=== PATIENT | female | born 1950 | race Caucasian/White ===

== ENCOUNTER → 2017-11-16 | Outpatient (CLI) | payer OTHER ==
--- NOTE | 2017-11-16 11:35 | RAD ---
EXAM: Right wrist, 3 views. HISTORY: Pain. COMPARISON: None. FINDINGS: 3 views of the right wrist are obtained. There is no acute fracture, dislocation or subluxation. There is first carpometacarpal joint space narrowing with subchondral sclerosis and minimal spurring. There is a prominent scapholunate joint space, not clearly within limits to suggest ligament surgery. IMPRESSION: No acute osseous finding. Minimal first carpometacarpal osteoarthritis. Electronically signed by: Zoraida Engel MD (11/16/2017 11:32 AM) [email or web address]
== END | disposition home or self-care (01) ==
LOC: PMG 10:37
PROVIDERS: ATTEND Physician Assistant Medical
DX: M19.041 Primary osteoarthritis, right hand (principal)
CPT/HCPCS: 73110

== ENCOUNTER → 2018-01-29 | Day surgery (SDC) | payer OTHER ==
[~2018-01-29] MED LIST: ALBU8.5H8 INH; ALBUTEROL SULFATE 2.5 MG/3 ML NEBU. NEB PRN; ATROPINE 0.5 MG/5 ML DISP.SYRIN. IV PRN; FEXO180T81 PO; IV RINGERS SOLUTION,LACTATED 1,000 ML IV SCH; LEVO100T PO; LIDOCAINE 2% PF Vial for OR 5 ML VIAL. ONE; LOSA1TAB22 PO; MONT10TA9 PO; NALOXONE 0.4 MG/ML VIAL. IV PRN; ONDANSETRON PF 4 MG/2 ML VIAL. IV PRN; PROPOFOL 20 ML IV ONE
[2018-01-29 13:42] VITALS: BP 132/76
== END | disposition home or self-care (01) ==
LOC: SURG 11:34
PROVIDERS: ATTEND Internal Medicine Gastroenterology
DX: Z12.11 Encounter for screening for malignant neoplasm of colon (principal); K63.5 Polyp of colon; K57.30 Diverticulosis of large intestine without perforation or abscess without bleeding; I10 Essential (primary) hypertension; J44.9 Chronic obstructive pulmonary disease, unspecified; E03.9 Hypothyroidism, unspecified; M19.90 Unspecified osteoarthritis, unspecified site; Z88.0 Allergy status to penicillin; Z88.1 Allergy status to other antibiotic agents; Z88.5 Allergy status to narcotic agent; Z72.0 Tobacco use; E74.39 Other disorders of intestinal carbohydrate absorption; Z79.899 Other long term (current) drug therapy; Z90.710 Acquired absence of both cervix and uterus; Z98.890 Other specified postprocedural states; Z96.651 Presence of right artificial knee joint
CPT/HCPCS: 45385; J7120; G0105

== ENCOUNTER → 2018-06-04 | Outpatient (CLI) | payer MEDICARE, OTHER ==
[2018-01-29 13:42] VITALS: BP 132/76
[~2018-06-04] MED LIST changes: +ALBU2.5V8 INH; -ALBU8.5H8 INH; -ALBUTEROL SULFATE 2.5 MG/3 ML NEBU. NEB PRN; -ATROPINE 0.5 MG/5 ML DISP.SYRIN. IV PRN; -IV RINGERS SOLUTION,LACTATED 1,000 ML IV SCH; -LIDOCAINE 2% PF Vial for OR 5 ML VIAL. ONE; -NALOXONE 0.4 MG/ML VIAL. IV PRN; -ONDANSETRON PF 4 MG/2 ML VIAL. IV PRN; -PROPOFOL 20 ML IV ONE
--- NOTE | 2018-06-04 10:19 | RAD ---
Indication:CONSTIPATION, diarrhea, ABD DISCOMFORT TECHNIQUE:Acute abdominal series COMPARISON: None FINDINGS: Heart is normal in size. Lungs are clear. No pneumothorax or pleural effusion. No pneumoperitoneum. No abnormally dilated bowel loops. Large amount of stool is seen in the colon. Bilateral hip arthroplasty. IMPRESSION: Diffuse large amount of colonic stool burden, patient may be constipated. Electronically signed by: Hayden Gayle DO (06/04/2018 10:16 AM) [facility]
== END | disposition home or self-care (01) ==
LOC: PMG 08:38
PROVIDERS: ATTEND Physician Assistant Medical
DX: R19.7 Diarrhea, unspecified (principal); R10.13 Epigastric pain; Z96.643 Presence of artificial hip joint, bilateral
CPT/HCPCS: 74022

== ENCOUNTER → 2020-01-12 | Outpatient (CLI) | payer MEDICARE ==
[2018-01-29 13:42] VITALS: BP 132/76
[~2020-01-12] MED LIST changes: +MONT10TA80 PO; -MONT10TA9 PO
--- NOTE | 2020-01-21 08:44 | RAD ---
EXAM: Bilateral digital screening mammogram with tomosynthesis. HISTORY: 69-year-old female presents for screening mammography. TECHNIQUE: Full-field digital craniocaudal and mediolateral oblique 2D and 3D tomosynthesis images of both breasts are obtained for evaluation. Computer aided detection was applied. COMPARISON: 01/09/2019 and 01/14/2018 BREAST PARENCHYMAL DENSITY: Level B - Scattered fibroglandular densities. FINDINGS: There is no new suspicious mass, microcalcification or region of architectural distortion. There is stable areas of nodularity within the 9:00 position of the right breast at anterior to mid depth. IMPRESSION: BI-RADS Category 2: Benign finding(s). RECOMMENDATION: Annual mammography is recommended. If your mammogram demonstrates that you have dense breast tissue, which could hide abnormalities, and if you have other risk factors for breast cancer that have been identified, you might benefit from supplemental screening tests that may be suggested by your ordering physician. Dense breast tissue, in and of itself, is a relatively common condition. This information is not provided to cause undue concern, but rather to raise your awareness and to promote discussion with your physician regarding the presence of other risk factors, in addition to dense breast tissue. A report of your mammography results will be sent to you and your physician. You should contact your physician if you have any questions or concerns regarding this report. Mammography is a sensitive method for finding small breast cancers, but it does not detect them all and is not a substitute for careful clinical examination. A negative mammogram does not negate a clinically suspicious finding and should not result in delay in biopsying a clinically suspicious abnormality. PQRS compliance statement - Patient information was entered into a reminder system with a target due date for the next mammogram. "Our facility is accredited by the [employer] Mammography [employer]." Electronically signed by: Zoraida Engel MD (01/21/2020 8:41 AM) [id number]
== END ==
LOC: MAMMO 09:56
PROVIDERS: ATTEND Physician Assistant Medical
DX: Z12.31 Encounter for screening mammogram for malignant neoplasm of breast (principal)
CPT/HCPCS: 77063; 77067

== ENCOUNTER → 2021-01-19 | Outpatient (CLI) | payer MEDICARE ==
[2018-01-29 13:42] VITALS: BP 132/76
--- NOTE | 2021-01-19 11:35 | RAD ---
INDICATION : Routine Screening. COMPARISON: Priors including December 2017 TECHNIQUE: Standard mammogram screening views of the bilateral breasts were obtained with 3D tomosynt hesis. CAD was utilized. FINDINGS: The breasts are scattered density. Within the anterior aspect of the right breast retroareolar regio n approximately 25 mm posterior to the nipple there is suspected small partially obscured mass which appears new or more apparent than on prior. No new left breast suspicious mass. IMPRESSION: BI-RADS Category 0: Incomplete. Further imaging evaluation is warranted. Within the anterior aspect o f the right breast there is suspected partially obscured mass seen. Recommend that the patient return for diagnostic mammogram and ultrasound to further assess whether this is solid or cystic in nature. The patient was placed into the recall system with a suggested recall date for follow up imaging. Mammography is the most sensitive method for finding small breast cancers, but it does not detect the m all and is not a substitute for careful clinical examination. A negative mammogram does not negate a clinically suspicious finding and should not result in delay in biopsying a clinically suspicious abnormality. Electronically signed by: Mark Raymundo MD (01/19/2021 11:33 AM) [id number]
--- NOTE | 2021-01-19 15:30 | RAD ---
DXA BONE DENSITY AXIAL, DXA BONE DENSITY AXIAL History: Reason: SCREENING / Spl. Instructions: / History: Post menopausal. Comparison: None. TECHNIQUE: Dual energy x-ray absorptiometry of the lumbar spine and right forearm was performed. T-sc ore of average bone mineral density based was calculated based on standard deviations above or below the expected young adult normal value. Diagnostic definitions were established by the [employer]. FINDINGS: The average bone mineral density associated with L1-L4 is 0.997 g/cm^2, corresponding with a T-score of -1.5. The average total bone mineral density associated with right forearm is 0.386 g/cm^2, corresponding w ith a T-score of -4.6. Refer to the worksheets for full detail. IMPRESSION: 1. Osteoporosis according to right forearm measurement. Average bone mineral density yields a T-scor e of -2.5 or less. Fracture risk is high. 2. Osteopenia according to lumbar spine. Electronically signed by: Ariel Alfaro DO (01/19/2021 3:27 PM) [id number]
== END ==
LOC: MAMMO 09:04
PROVIDERS: ATTEND Physician Assistant Medical
DX: Z12.31 Encounter for screening mammogram for malignant neoplasm of breast (principal); M81.0 Age-related osteoporosis without current pathological fracture; Z78.0 Asymptomatic menopausal state
CPT/HCPCS: 77063; 77067; 77080; 77081

== ENCOUNTER → 2021-02-04 | Outpatient (CLI) | payer MEDICARE ==
[2018-01-29 13:42] VITALS: BP 132/76
--- NOTE | 2021-02-04 14:03 | RAD ---
EXAM: Right breast diagnostic mammogram; right breast sonogram. HISTORY: 70-year-old female presents for evaluation of a mass demonstrated on a mammogram dated 2020. TECHNIQUE: Full-field digital and spot compression views of the right breast are obtained. Sonographi c imaging of the right breast targeted to the site of mammographic abnormality and the axilla was als o performed. COMPARISON: 01/19/2021, 01/12/2020 BREAST PARENCHYMAL DENSITY: Level B - Scattered fibroglandular densities. FINDINGS: There is a persistent small circumscribed nodular density within the 9:00 position of the r ight breast at anterior to mid depth with the additional mammographic views. No suspicious calcificat ion or architectural distortion is seen. Sonographic imaging of the right breast demonstrates a circumscribed nonvascular hypoechoic lesion wi th internal echoes at the 9:00 position 4 cm the nipple measuring 6 mm. This demonstrates no posterio r shadowing or architectural distortion. This corresponds with the size and location of the nodule co ncern and a straight mammographically. There is no suspicious axillary lymph node. IMPRESSION: 1. 6 mm benign-appearing hypoechoic lesion at the 9:00 position of the right breast 4 cm from the nip ple, corresponding with the mammographic finding of concern. The sonographic appearance favors a comp licated cyst. The possibility of a fibroadenoma is not completely excluded. 2. BI-RADS Category 3: Probably benign finding(s). Short term follow up with a right breast sonogram in 6 months is recommended to confirm stability. If your mammogram demonstrates that you have dense breast tissue, which could hide abnormalities, and if you have other risk factors for breast cancer that have been identified, you might benefit from s upplemental screening tests that may be suggested by your ordering physician. Dense breast tissue, i n and of itself, is a relatively common condition. This information is not provided to cause undue c oncern, but rather to raise your awareness and to promote discussion with your physician regarding th e presence of other risk factors, in addition to dense breast tissue. A report of your mammography re sults will be sent to you and your physician. You should contact your physician if you have any ques tions or concerns regarding this report. Mammography is a sensitive method for finding small breast cancers, but it does not detect them all a nd is not a substitute for careful clinical examination. A negative mammogram does not negate a clin ically suspicious finding and should not result in delay in biopsying a clinically suspicious abnorma lity. PQRS compliance statement - Patient information was entered into a reminder system with a target due date for the next mammogram. "Our facility is accredited by the [employer] Mammography [employer]." Electronically signed by: Zoraida Engel MD (02/04/2021 2:01 PM) [id number]
== END ==
LOC: MAMMO 12:57
PROVIDERS: ATTEND Physician Assistant Medical
DX: R92.2 Inconclusive mammogram (principal)
CPT/HCPCS: 76642; 77065